=== PATIENT | female | born 1970 | race African-American/Black ===

== ENCOUNTER 2025-03-19 11:57 | Emergency (ER) | payer OTHER, MEDICAID ==
[~2025-03-19] VITALS: Ht 162.6 cm; Wt 63.0 kg
[2025-03-19 12:00] VITALS: BP 129/76; PULSE 74; RESP 16; TEMP 36.7; O2SAT 100
[2025-03-19] MEDS ORDERED: ACETAMINOPHEN 325MG TABLET PO ONE (12:45)
== END 2025-03-19 14:07 | disposition home or self-care (01) ==
LOC: ER 11:57
DX: M79.605 Pain in left leg (principal); W18.30XA Fall on same level, unspecified, initial encounter; Y93.01 Activity, walking, marching and hiking; Y92.410 Unspecified street and highway as the place of occurrence of the external cause; Y99.8 Other external cause status
CPT/HCPCS: 99283